=== PATIENT | male | born 1980 | race Caucasian/White ===

== ENCOUNTER 2016-09-08 15:55 | Emergency (ER) | payer OTHER ==
[~2016-09-08] VITALS: Ht 170.2 cm; Wt 81.8 kg
[2016-09-08 15:56] VITALS: BP 146/78; PULSE 76; TEMP 97.3
[2016-09-08] MEDS ORDERED: NORCO 325 MG-51 TAB PO (16:46)
== END 2016-09-08 17:02 | disposition home or self-care (01) ==
LOC: COL.ER 15:55
DX: S02.2XXA Fracture of nasal bones, initial encounter for closed fracture (principal); V43.52XA Car driver injured in collision with other type car in traffic accident, initial encounter; W22.11XA Striking against or struck by driver side automobile airbag, initial encounter; Y92.410 Unspecified street and highway as the place of occurrence of the external cause; S50.12XA Contusion of left forearm, initial encounter; Z23 Encounter for immunization; R40.2412 Glasgow coma scale score 13-15, at arrival to emergency department